=== PATIENT | female | born 1965 | race Caucasian/White ===

== ENCOUNTER 2022-06-10 06:53 | Day surgery (SDC) | payer OTHER, SELFPAY ==
--- NOTE | 2022-06-09 13:10 | HO.ANESPROP2 ---
Documented by User: Christine Flores NP 06/09/22 13:10 HPI - Anesthesia Eval Consult details Narrative: 57yo F for Colonoscopy [facility] Past Medical History Medical History (Updated 06/09/22 @ 12:26 by Sarita Lombardo RN) Breast cancer Elevated cholesterol Graves' disease Hypothyroid Surgical History Surgical History (Updated 06/10/22 @ 07:26 by Chikis Thapa, RN) H/O shoulder surgery History of lumpectomy History of tonsillectomy and adenoidectomy Hx of colonoscopy Social History Social History Patient Tobacco Use Status: Never used Tobacco Are you DNR?: No Advance Directives: No Advance Directives Information Provided: Yes Nutrition Risks: No Nutritional Risk Meds Allergies Allergy/AdvReac Type Severity Reaction Status Date / Time No Known Allergies Allergy Verified 06/09/22 12:27 Home Medications Medication Instructions Recorded Confirmed Last Taken Type levothyroxine 100 mcg tablet 1 tab PO DAILY 06/09/22 06/10/22 06/09/22 History (Synthroid) Exam Exam Date and Time: June 09, 2022 1310 Assessment and Plan Assessment Anesthesia Assessment: Chart Reviewed Documented by User: Amanda Merchant MD 06/10/22 08:02 [facility] Past Medical History Medical History (Updated 06/09/22 @ 12:26 by Sarita Lombardo RN) Breast cancer Elevated cholesterol Graves' disease Hypothyroid Family History Family history of problems with anesthesia: No Surgical History Surgical History (Updated 06/10/22 @ 07:26 by Chikis Thapa RN) H/O shoulder surgery History of lumpectomy History of tonsillectomy and adenoidectomy Hx of colonoscopy History of Problems with Anesthesia: No Social History Social History Patient Tobacco Use Status: Never used Tobacco Are you DNR?: No Advance Directives: No Advance Directives Information Provided: Yes Nutrition Risks: No Nutritional Risk Meds Allergies Allergy/AdvReac Type Severity Reaction Status Date / Time No Known Allergies Allergy Verified 06/09/22 12:27 Home Medications Medication Instructions Recorded Confirmed Last Taken Type levothyroxine 100 mcg tablet 1 tab PO DAILY 06/09/22 06/10/22 06/09/22 History (Synthroid) Exam Airway Mallampati Class: II TM Dist: >3cm Neck ROM: Full Heart: rrr Lungs: cta Assessment and Plan Assessment Anesthesia Assessment: Anesthesia Plan Discussed and Chart Reviewed Final Anesthetic Review Family History of Problems with Anesthesia: No History of Problems with Anesthesia: No NPO: Yes ASA Class: II Final Preanesthetic Review: No Changes in Pt Med Stat, Meds/Allgs Chart Reviewed, Consent Obtained/Reviewed and Anes Risks/Benef Reviewed Patient Risk: Low Procedure Risk: Low Anesthetic Plan Anesthetic Plan: MAC: Disposition: Standard PACU
[2022-06-10 06:11] VITALS: BMI 33.3
[2022-06-10 07:01] VITALS: BP 134/101; PULSE 87; RESP 16; TEMP 37; O2SAT 98
[2022-06-10] MEDS: Lactated Ringers 1,000 ML 100 ML IVCONT (07:25)
--- NOTE | 2022-06-10 08:05 | MHC.SHP ---
Pre-Procedural Eval Section A Date of Service: 06/10/22 Section B Chief Complaint: screening Details of Present Illness: see H*P no changes Relevant Family History (Specify if Yes): No Relevant Social History: None Present Medications: None Medical History: No relevant PMH History of Previous Operations: No relevant previous surgery Allergies: Allergies Allergy/AdvReac Type Severity Reaction Status Date / Time No Known Allergies Allergy Verified 06/09/22 12:27 Review of Systems Sugical H&P ROS: Negative: Constitution, Cardiovascular, Respiratory, Neurological, Psychiatric, Hem-Onc, Allergic/Immunologic, Gastrointestinal, Genitourinary, Musculoskeletal, Integumentary, Endocrine and Eyes/Ears/Nose/Throat Exam Surgical H&P Exam: Normal: HEENT, Normal: Heart, Normal: Lungs, Normal: Extremities, Normal: Abdomen, Normal: Skin and Normal: Neurological Plan Diagnosis/Plan: Unchanged I have reviewed the history and physical and performed a pertinent physical examination on my patient. No changes have occurred unless specified. Time Spent With Patient Time: Total time managing care of this patient today ____ minutes.
--- NOTE | 2022-06-10 08:38 | P.BOP_ITS ---
Brief Operative Note Date of Service: 06/10/22 Pre-op diagnosis: screenign Post-op diagnosis: same Surgeon: Cassius Ireland Anesthesia: MAC Was an Mobile Home Serv[employer] used for this Procedure?: No Estimated blood loss (mL): 0 Pathology: none sent Condition: stable Disposition: PACU
[2022-06-10 08:41] VITALS: BP 114/76; PULSE 70; RESP 18; TEMP 36.6; O2SAT 97
--- NOTE | 2022-06-10 08:55 | OP_ITS ---
SURGEON: Cassius Ireland MD INDICATIONS: Colon cancer screening and family history of colon cancer. PREOPERATIVE DIAGNOSIS: POSTOPERATIVE DIAGNOSIS: PROCEDURE PERFORMED: Colonoscopy to the terminal ileum. ESTIMATED BLOOD LOSS: COMPLICATIONS: ANESTHESIA: Monitored anesthesia care. ASSISTANTS: SPECIMENS: DESCRIPTION OF PROCEDURE: A history and physical were performed. The risks and benefits of the procedure were explained to the patient, and informed consent was obtained. The patient was placed in the left lateral decubitus position. A digital rectal exam was performed and was found to be normal. The Olympus pediatric video colonoscope was introduced into the rectum and advanced to the cecum without difficulty. The cecum was identified by transillumination, palpation, and identification of ileocecal valve examination was performed. The scope was removed. She tolerated the procedure well and was taken to the recovery area in stable condition. The procedure was performed on 06/10/2022. FINDINGS: The terminal ileum was normal. The visualized colonic mucosa was normal. The quality of the prep was good. No polyps were identified. There were few diverticula seen in the sigmoid retroflexed examination showed moderate-sized internal hemorrhoids. IMPRESSION: Normal colonoscopy. RECOMMENDATION: 1. Follow up as needed. 2. Repeat colonoscopy is recommended in 5 years because of family history. MD MARIPOSA Grissom/CASHL / [id number] MTDD
[2022-06-10 08:56] VITALS: BP 127/86; PULSE 65; RESP 16; TEMP 36.5; O2SAT 97
== END 2022-06-10 09:23 | disposition home or self-care (01) ==
PROVIDERS: PCP Internal Medicine; Visit Provider Internal Medicine Gastroenterology
PROC: 0DJD8ZZ Inspection of Lower Intestinal Tract, Via Natural or Artificial Opening Endoscopic (ICD-10-PCS; CPT 45378; principal; 2022-06-10 08:10)
DX: Z12.11 Encounter for screening for malignant neoplasm of colon (principal); Z80.0 Family history of malignant neoplasm of digestive organs; K57.30 Diverticulosis of large intestine without perforation or abscess without bleeding; K64.8 Other hemorrhoids; E78.00 Pure hypercholesterolemia, unspecified; E05.00 Thyrotoxicosis with diffuse goiter without thyrotoxic crisis or storm; E03.9 Hypothyroidism, unspecified; Z79.82 Long term (current) use of aspirin; Z79.899 Other long term (current) drug therapy; Z85.3 Personal history of malignant neoplasm of breast
CPT/HCPCS: 45378; J3010